=== PATIENT | female | born 1970 | race Caucasian/White ===

== ENCOUNTER 2020-07-03 11:21 | Emergency (ER) | payer MEDICAID, OTHER ==
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
--- NOTE | 2020-07-03 12:59 | CR ---
Cervical spine: AP, lateral and odontoid views of the cervical spine were obtained. Previous surgery is noted at C4-5 and C5-6. Fusion is noted as well as anterior plate and screws at these 2 levels. Severe disc space narrowing is noted at C6-7. Other disc spaces are preserved. Vertebral body heights are maintained. Prevertebral soft tissues are normal. No discrete fracture or subluxation is seen. Impression: 1. Previous surgery. 2. Disc space narrowing at C6-7. 3. Nothing acute is appreciated. Diagnostic code #2 This report was dictated in MDT
== END 2020-07-03 13:25 | disposition home or self-care (01) ==
LOC: JD.ED 11:21
DX: S16.1XXA Strain of muscle, fascia and tendon at neck level, initial encounter (principal); F17.210 Nicotine dependence, cigarettes, uncomplicated; Z91.048 Other nonmedicinal substance allergy status; W18.30XA Fall on same level, unspecified, initial encounter
CPT/HCPCS: 72040; 72040-26; 99282; 99283-25

== ENCOUNTER 2020-10-18 18:04 | Emergency (ER) | payer MEDICAID ==
[2020-10-18] MEDS ORDERED: Sodium Chloride 0.9% 10 ML Syringe FLUSH PRN (19:10)
[2020-10-18] MEDS ORDERED: LORazepam 2 MG/ML SDV IV ONE (19:11)
[2020-10-18] MEDS ORDERED: QUEtiapine 100 MG Tab PO STA (19:11)
[2020-10-18] MEDS ORDERED: tiZANidine 4 MG Tab PO ONE (19:12)
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
--- NOTE | 2020-10-19 10:26 | CR ---
Abdomen: Supine view of the abdomen was obtained. Comparison: No prior abdominal x-rays available. Slight increased stool within the colon is seen. Bowel gas pattern is otherwise unremarkable. Calcifications are noted within the pelvis most likely representing phleboliths. Previous cholecystectomy is noted. Focal bony exostosis noted at the lateral left iliac crest believed to be old. Impression: 1. Slight increased stool. 2. Other incidental findings as noted above. Diagnostic code #2
== END 2020-10-19 08:58 | disposition home or self-care (01) ==
LOC: JD.ED 18:04
DX: F31.0 Bipolar disorder, current episode hypomanic (principal); I10 Essential (primary) hypertension; E78.00 Pure hypercholesterolemia, unspecified; F41.1 Generalized anxiety disorder; F17.210 Nicotine dependence, cigarettes, uncomplicated; Z88.8 Allergy status to other drugs, medicaments and biological substances; Z79.899 Other long term (current) drug therapy
CPT/HCPCS: 36415; 74018; 80306; 81001; 83735; 84443; 85025; 86140; 93005; 96374; 99284; A9270; J2060; 93010

== ENCOUNTER 2020-10-20 12:27 | Emergency (ER) | payer MEDICAID ==
[2020-10-20] MEDS ORDERED: Sodium Chloride 0.9% 10 ML Syringe FLUSH PRN (13:03)
[2020-10-20] MEDS ORDERED: LORazepam 2 MG/ML SDV IVPUSH ONE (13:03)
[2020-10-20] MEDS ORDERED: QUEtiapine 100 MG Tab PO ONE (13:04)
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
[2020-10-20] MEDS ORDERED: Potassium Chloride 20 MEQ Tab.ER PO ONE ×3 (14:09→21:51)
[2020-10-20] MEDS ORDERED: Sodium Chloride 0.9% 1,000 ML IV ONE ×2 (15:02→22:09)
[2020-10-20] MEDS: Potassium Chloride 10 MEQ in Premix Bag 1 BAG IV SCH ×6 (15:13→23:30)
[2020-10-20] MEDS ORDERED: Sodium Chloride 0.9% 1,000 ML ONE (22:09)
[2020-10-21] MEDS: Potassium Chloride 10 MEQ in Premix Bag 1 BAG IV SCH ×2 (00:31→01:33)
[2020-10-21] MEDS ORDERED: Famotidine 20 MG/2 ML SDV IVPUSH STA (00:34)
[2020-10-21] MEDS ORDERED: Aluminum Hydroxide/Magnesium Hydroxide/Simethicone Susp 30 ML Cup PO ONE (00:34)
== END 2020-10-21 04:03 | disposition other institution (70) ==
LOC: JD.ED 12:27
DX: F31.0 Bipolar disorder, current episode hypomanic (principal); E87.6 Hypokalemia; I10 Essential (primary) hypertension; E78.00 Pure hypercholesterolemia, unspecified; F41.9 Anxiety disorder, unspecified; Z77.22 Contact with and (suspected) exposure to environmental tobacco smoke (acute) (chronic); Z88.8 Allergy status to other drugs, medicaments and biological substances; Z88.1 Allergy status to other antibiotic agents; Z79.899 Other long term (current) drug therapy
CPT/HCPCS: 36415; 80048; 80053; 80306; 80307; 83735; 84132; 84443; 85007; 85027; 93005; 96365; 96366; 96375; 99285; A9270; J2060; J3480; J3490; J7030; 93010; 99284

== ENCOUNTER 2020-10-21 12:31 | Emergency (ER) | payer MEDICAID ==
--- NOTE | 2020-10-21 12:43 | EDM.PDOCBH ---
ED HPI GENERAL MEDICAL PROBLEM - General Chief Complaint: Behavioral/Psych Stated Complaint: MENTAL HEALTH EVAL Time Seen by Provider: 10/21/20 12:33 Source of Information: Reports: Patient, Old Records, RN Notes Reviewed, Other (Stormy Travis, staff from [facility]) History Limitations: Reports: No Limitations - History of Present Illness INITIAL COMMENTS - FREE TEXT/NARRATIVE: Patient is a 50-year-old female who presents to the ER with Stormy Travis from [facility], for inpatient psychiatric committal. Patient was seen in this ER yesterday, for her bipolar tendencies and hypomania. She was found to be hypokalemic, and was given IV potassium and oral supplementation, and achieved a level of 4.0 and discharged into the care of [facility] staff early this morning. Staff at [facility] say that she has been inappropriate while in their care, is exceeding the capabilities of their facility and they do believe that she needs further inpatient psychiatric management at this time. Patient was medically cleared from this ER yesterday via labs. She has not been unsupervised after discharge. I do agree with the staff from [facility] the patient would likely benefit from inpatient management to get her started on her meds again so she can get her head on straight. Patient denies any other sick-like symptoms, fever/chills, cough/shortness of breath, nausea/vomiting/diarrhea. - Related Data Allergies Allergy/AdvReac Type Severity Reaction Status Date / Time aspirin AdvReac Stomach Verified 10/20/20 13:14 Upset erythromycin base AdvReac Stomach Verified 10/20/20 13:14 Upset EES Allergy Severe Nausea and Uncoded 07/03/20 11:36 Vomiting Home Meds: Home Meds Acyclovir 800 mg PO ASDIRECTED 07/03/20 [History] Albuterol Sulfate 2 puff INH ASDIRECTED 07/03/20 [History] Chlorthalidone 25 mg PO DAILY 07/03/20 [History] Estrogens, Conjugated [Premarin] 0.625 mg PO DAILY 07/03/20 [History] Levothyroxine Sodium [Synthroid] 175 mcg PO DAILY 07/03/20 [History] Minocycline [Minocin] 100 mg PO DAILY 07/03/20 [History] Montelukast Sodium [Singulair] 10 mg PO DAILY 07/03/20 [History] Nabumetone [Relafen Ds] 750 mg PO BID 07/03/20 [History] PARoxetine HCl [Paxil] 40 mg PO DAILY 07/03/20 [History] QUEtiapine [SEROquel] 300 mg PO BEDTIME 07/03/20 [History] SUMAtriptan [Imitrex] 100 mg PO ASDIRECTED 07/03/20 [History] atenoloL [Atenolol] 25 mg PO BID 07/03/20 [History] atorvaSTATin [Lipitor] 40 mg PO DAILY 07/03/20 [History] hydrOXYzine HCL [hydrOXYzine] 25 mg PO ASDIRECTED 07/03/20 [History] QUEtiapine Fumarate [Seroquel] 300 mg PO DAILY #30 tablet 10/20/20 [Rx] Past Medical History Cardiovascular History: Reports: High Cholesterol, Hypertension Psychiatric History: Reports: Anxiety, Bipolar, Depression, PTSD Social & Family History - Caffeine Use Caffeine Use: Reports: Soda - Living Situation & Occupation Living situation: Reports: Single Occupation: Unemployed ED ROS GENERAL - Review of Systems Review Of Systems: Comprehensive ROS is negative, except as noted in HPI. ED EXAM, BEHAVIORAL HEALTH - Physical Exam Exam: See Below Exam Limited By: No Limitations General Appearance: Alert, WD/WN, No Apparent Distress Respiratory/Chest: No Respiratory Distress, Lungs Clear, Normal Breath Sounds, No Accessory Muscle Use, Chest Non-Tender Cardiovascular: Normal Peripheral Pulses, Regular Rate, Rhythm, No Murmur GI/Abdominal: Normal Bowel Sounds, Soft, Non-Tender, No Distention, No Mass Neurological: Alert Psychiatric: Alert, Normal Mood, Flat Affect, Flight of Ideas, Tangential Thoughts, Paranoid Thoughts. No: Homicidal Thoughts, Suicidal Plan, Suicidal Thoughts, Auditory Hallucinations, Visual Hallucinations, Grandiose Thoughts, Threatening Behavior Skin Exam: Warm, Dry, Intact, Normal color, No rash COURSE, BEHAVIORAL HEALTH COMP - Course Vital Signs: Last Vital Signs Temp 97.9 F 10/21/20 12:41 Pulse 65 10/21/20 12:41 Resp 14 10/21/20 12:41 BP 139/79 10/21/20 12:41 Pulse Ox 99 10/21/20 12:41 Orders, Labs, Meds: Laboratory Tests 10/21/20 10/21/20 10/21/20 Range/Units 12:34 14:04 14:15 WBC 7.53 (3.98-10.04) K/mm3 RBC 5.07 (3.98-5.22) M/mm3 Hgb 15.0 D (11.2-15.7) gm/dl Hct 42.9 (34.1-44.9) % MCV 84.6 (79.4-94.8) fl MCH 29.6 (25.6-32.2) pg MCHC 35.0 (32.2-35.5) g/dl RDW Std Deviation 44.0 (36.4-46.3) fL Plt Count 464 H (182-369) K/mm3 MPV 9.0 L (9.4-12.3) fl Neutrophils % (Manual) 61 H (40-60) % Band Neutrophils % 0 (0-10) % Lymphocytes % (Manual) 35 (20-40) % Atypical Lymphs % 0 % Monocytes % (Manual) 0 L (2-10) % Eosinophils % (Manual) 4 (0.7-5.8) % Basophils % (Manual) 0 L (0.1-1.2) Platelet Estimate Increased RBC Morph Comment Normal Sodium (136-145) mEq/L Potassium (3.5-5.1) mEq/L Chloride (98-107) mEq/L Carbon Dioxide (21-32) mEq/L Anion Gap (5-15) BUN (7-18) mg/dL Creatinine (0.55-1.02) mg/dL Est Cr Clr Drug Dosing mL/min Estimated GFR (MDRD) (>60) mL/min BUN/Creatinine Ratio (14-18) Glucose (74-106) mg/dL Calcium (8.5-10.1) mg/dL Total Bilirubin (0.2-1.0) mg/dL AST (15-37) U/L ALT (14-59) U/L Alkaline Phosphatase (46-116) U/L Total Protein (6.4-8.2) g/dl Albumin (3.4-5.0) g/dl Globulin gm/dL Albumin/Globulin Ratio (1-2) TSH 3rd Generation (0.358-3.74) uIU/mL Salicylates (2.8-20) mg/dL Urine Opiates Screen Negative (EKKQNH=792) Ur Buprenorphine Scrn Negative (CUTOFF=10) Ur Oxycodone Screen Negative (ISO5AN=859) Urine Methadone Screen Negative (FRQLZB=725) Ur Propoxyphene Screen Negative (VGJACO=172) Acetaminophen (10-30) ug/mL Ur Barbiturates Screen Negative (DYGXER=244) Ur Tricyclics Screen Negative (MQPKDQ=848) Ur Phencyclidine Scrn Negative (CUTOFF=25) Ur Amphetamine Screen Negative (EKHCYQ=494) U Methamphetamines Scrn Negative (GUMNCO=210) U Benzodiazepines Scrn Presumptive positive H (ZVRIPH=394) U Cocaine Metab Screen Negative (DQOIEV=933) U Marijuana (THC) Screen Presumptive positive H (CUTOFF=50) Ethyl Alcohol (0.00) gm% Influenza Type A RNA Negative (NEGATIVE) Influenza Type B RNA Negative (NEGATIVE) SARS-CoV-2 RNA (ELIZABETH) Negative (NEGATIVE) 10/21/20 10/21/20 Range/Units 14:15 14:15 WBC (3.98-10.04) K/mm3 RBC (3.98-5.22) M/mm3 Hgb (11.2-15.7) gm/dl Hct (34.1-44.9) % MCV (79.4-94.8) fl MCH (25.6-32.2) pg MCHC (32.2-35.5) g/dl RDW Std Deviation (36.4-46.3) fL Plt Count (182-369) K/mm3 MPV (9.4-12.3) fl Neutrophils % (Manual) (40-60) % Band Neutrophils % (0-10) % Lymphocytes % (Manual) (20-40) % Atypical Lymphs % % Monocytes % (Manual) (2-10) % Eosinophils % (Manual) (0.7-5.8) % Basophils % (Manual) (0.1-1.2) Platelet Estimate RBC Morph Comment Sodium 137 (136-145) mEq/L Potassium 3.3 L (3.5-5.1) mEq/L Chloride 102 (98-107) mEq/L Carbon Dioxide 25 (21-32) mEq/L Anion Gap 13.3 (5-15) BUN 6 L (7-18) mg/dL Creatinine 1.0 (0.55-1.02) mg/dL Est Cr Clr Drug Dosing 56.83 mL/min Estimated GFR (MDRD) 58 (>60) mL/min BUN/Creatinine Ratio 6.0 L (14-18) Glucose 154 H (74-106) mg/dL Calcium 9.5 (8.5-10.1) mg/dL Total Bilirubin 0.3 (0.2-1.0) mg/dL AST 60 H (15-37) U/L ALT 65 H (14-59) U/L Alkaline Phosphatase 92 (46-116) U/L Total Protein 7.8 (6.4-8.2) g/dl Albumin 4.4 (3.4-5.0) g/dl Globulin 3.4 gm/dL Albumin/Globulin Ratio 1.3 (1-2) TSH 3rd Generation 0.182 L (0.358-3.74) uIU/mL Salicylates 2.7 L (2.8-20) mg/dL Urine Opiates Screen (PTUQGO=188) Ur Buprenorphine Scrn (CUTOFF=10) Ur Oxycodone Screen (EIU0QT=540) Urine Methadone Screen (ULDYXM=971) Ur Propoxyphene Screen (XWWJSS=157) Acetaminophen 0 L (10-30) ug/mL Ur Barbiturates Screen (QIQNCU=983) Ur Tricyclics Screen (GXLTIC=855) Ur Phencyclidine Scrn (CUTOFF=25) Ur Amphetamine Screen (KVZPMM=360) U Methamphetamines Scrn (OYATNJ=161) U Benzodiazepines Scrn (KOQVDY=441) U Cocaine Metab Screen (GYTWOW=022) U Marijuana (THC) Screen (CUTOFF=50) Ethyl Alcohol 0.00 (0.00) gm% Influenza Type A RNA (NEGATIVE) Influenza Type B RNA (NEGATIVE) SARS-CoV-2 RNA (ELIZABETH) (NEGATIVE) Medications Discontinued Medications Generic Name Dose Route Start Last Admin Trade Name Freq PRN Reason Stop Dose Admin Potassium Chloride 40 meq 10/21/20 15:01 Klor-Con M20 PO 10/21/20 15:02 ONETIME ONE Discharge vs Psych Eval/Treatment:: 10/21/20 12:51 Patient presents to the ED for the evaluation of committal for inpatient psychiatric management. For today's purposes as her labs were stable yesterday and unremarkable except for the IV potassium that was corrected, should she will get a Covid swab for further lab management and we will try to find placement for her at this time. I have been in contact with [facility] in [place] and they note that they do have some beds open but would like a call back when we have the COVID swab and committal paperwork done. 10/21/20 13:54 Committal paperwork has been sent to us via [facility] human service staff, patient's COVID-19 swab is negative. Patient is medically clear in my opinion at this time. 10/21/20 14:15 Was in contact with [facility] in [place], Dr. Perdomo, psychiatrist career professional does request labs to be repeated. Have ordered these as such. Emergency care home paperwork has been faxed to their facility for the review, along with prior ED visits from yesterday and 10/18/2020. 10/21/20 15:18 Labs are back, potassium is at 3.3, she has been given 40 mEq p.o. potassium for this, thyroid level again is low but she is not been taking her medications. Urine drug screens positive for benzodiazepines and marijuana again patient has a medical marijuana card, and we did give her Ativan yesterday. Otherwise patient is medically cleared, I did talk with Dr. Perdomo at [facility] and she does graciously accept the patient for transfer. Departure - Departure Time of Disposition: 15:19 Disposition: DC/Tfer to Psych Hosp/Unit 65 Condition: Good Clinical Impression: Bipolar affective disorder, current episode hypomanic - Discharge Information Referrals: PCP,None [Primary Care Provider] - Forms: ED Department Discharge Sepsis Event Note (ED) - Focused Exam Vital Signs: Vital Signs Temp Pulse Resp BP Pulse Ox 10/21/20 12:41 97.9 F 65 14 139/79 99
[2020-10-21 13:35] LABS: CORONAVIRUS COVID-19 NAA NEGATIVE (NEGATIVE)
[2020-10-21] MEDS ORDERED: Potassium Chloride 20 MEQ Tab.ER PO ONE (15:01)
[2020-10-21] MEDS ORDERED: Potassium Chloride 20 MEQ Tab.ER ONE (15:51)
== END 2020-10-21 16:04 ==
LOC: JD.ED 12:31
DX: F31.0 Bipolar disorder, current episode hypomanic (principal); I10 Essential (primary) hypertension; E78.00 Pure hypercholesterolemia, unspecified; F41.9 Anxiety disorder, unspecified; Z20.828 Contact with and (suspected) exposure to other viral communicable diseases; Z88.1 Allergy status to other antibiotic agents; Z88.8 Allergy status to other drugs, medicaments and biological substances; Z79.899 Other long term (current) drug therapy
CPT/HCPCS: 0240U; 36415; 80053; 80306; 80307; 84443; 85007; 85027; 99284; A9270; 99283